=== PATIENT | male | born 1960 | race Hispanic/Latino ===

== ENCOUNTER 2018-10-30 05:44 | Observation (INO) | payer BC ==
[~2018-10-30 05:44] MED LIST: ANCEF/STERILE WATER 2 GM/20 ML IV NR
[2018-10-30] MEDS ORDERED: NACL BACTERIOSTATIC INFILTRATI ONE (06:30)
[2018-10-30] MEDS ORDERED: LACTATED RINGERS 1,000 ML ONE (06:30)
[2018-10-30] MEDS ORDERED: XYLOCAINE MPF 2% ONE (07:00)
[2018-10-30] MEDS ORDERED: QUELICIN ONE (07:00)
[2018-10-30] MEDS ORDERED: ROBINUL ONE (07:00)
[2018-10-30] MEDS ORDERED: ZOFRAN ONE (07:00)
[2018-10-30] MEDS ORDERED: PHENYLEPHRINE/NS Syringe 1,000 MCG/10 ML IV ONE (07:00)
[2018-10-30] MEDS ORDERED: BLOXIVERZ ONE (07:00)
[2018-10-30] MEDS ORDERED: DECADRON ONE (07:00)
[2018-10-30 07:10] LABS: Basophils % (Auto) 0.6 % (0.0-1.8); Eosinophils # (Auto) 0.2 K/mm3 (0.0-0.4); Eosinophils % (Auto) 3.3 % (0.0-4.3); Hematocrit 42.9 % (35.5-45.6); Hemoglobin 14.6 gm/dl (11.8-15.2); Lymphocytes # (Auto) 1.2 K/mm3 (1.2-5.4); Lymphocytes % (Auto) 23.8 % (13.4-35.0); Mean Corpuscular HGB Conc 34 % (32-34); Mean Corpuscular Hemoglobin 30 pg (28-32); Mean Corpuscular Volume 89 fl (84-94); Monocytes # (Auto) 0.6 K/mm3 (0.0-0.8); Monocytes % (Auto) 11.6 % (0.0-7.3); Platelet Count 148 K/mm3 (140-440); Red Blood Count 4.81 M/mm3 (3.65-5.03); Red Cell Distribution Width 13.3 % (13.2-15.2)
--- NOTE | 2018-10-30 07:24 | Anesthesia Day of Surgery ---
Anesthesia Day of Surgery - Day of Surgery Patient Examined: Yes Patient H&P Reviewed: Yes Patient is NPO: Yes
--- NOTE | 2018-10-30 07:28 | Anesthesia Consultation ---
Anesthesia Consult and Med Hx Date of service: 10/30/18 - Pre-Operative Health Status ASA Pre-Surgery Classification: ASA3 Proposed Anesthetic Plan: General - Pulmonary Hx Smoking: Yes (STOPPED 1997) COPD: Yes (DAILY INHALER) Hx Sleep Apnea: Yes (DX SLEEP APNEA , NO CPAP USE.) - Cardiovascular System Hx Hypertension: Yes (X 5 YRS) Hx Coronary Artery Disease: No (ETT few years ago negative per pt) - Central Nervous System Hx Back Pain: Yes (BACK PAIN TO RT LEG WITH PAIN AND NUMBNESS) - Other Systems Hx Cancer: No
[2018-10-30 07:29] LABS: Alanine Aminotransferase 35 units/L (7-56); Albumin 4.5 g/dL (3.9-5); BUN/Creatinine Ratio 27; Blood Urea Nitrogen 16 mg/dL (9-20); Calcium 9.3 mg/dL (8.4-10.2); Hemolysis Index 5
[2018-10-30] MEDS ORDERED: CELESTONE SOLUSPAN IM ONE (07:34)
[2018-10-30] MEDS ORDERED: MARCAINE 0.5% INFILTRATI ONE ×2 (07:35→19:21)
[2018-10-30] MEDS ORDERED: DIPRIVAN 10 MG/ML IV ONE ×2 (07:35→16:34)
[2018-10-30] MEDS ORDERED: XYLOCAINE 1%/ EPI 1:100,000 INFILTRATI ONE (07:35)
[2018-10-30] MEDS ORDERED: SUBLIMAZE ONE (07:35)
[2018-10-30] MEDS ORDERED: BACITRACIN ONE (07:35)
[2018-10-30] MEDS ORDERED: NACL P/F VIAL (10 ML) 10 ML ONE (07:35)
[2018-10-30] MEDS ORDERED: TYLENOL ONE (07:46)
[2018-10-30] MEDS: VERSED IV NR ×2 (07:50→15:35)
[2018-10-30] MEDS ORDERED: ANCEF ONE (07:51)
[2018-10-30] MEDS ORDERED: SUBLIMAZE IV PRN (08:00)
[2018-10-30] MEDS ORDERED: ZOFRAN IV PRN (08:00)
[2018-10-30] MEDS ORDERED: MORPHINE IV NR (08:00)
[2018-10-30] MEDS ORDERED: TYLENOL PO NR (08:00)
[2018-10-30] MEDS ORDERED: LACTATED RINGERS 1,000 ML IV SCH (08:00)
[2018-10-30] MEDS ORDERED: NEURONTIN PO NR (08:00)
[2018-10-30] MEDS ORDERED: METHYLENE BLUE ONE (08:45)
[2018-10-30] MEDS ORDERED: DILAUDID IV PRN ×2 (09:06→22:09)
[2018-10-30] MEDS: DILAUDID IV PRN ×3 (11:19→23:50)
[2018-10-30] MEDS ORDERED: VERSED IV ONE (15:23)
[2018-10-30] MEDS ORDERED: KETALAR ONE (16:34)
[2018-10-30] MEDS ORDERED: BACITRACIN IR ONE (19:21)
[2018-10-30] MEDS ORDERED: OMNIPAQUE 300 MG/50 ML (CATH LAB) IV ONE (19:21)
[2018-10-30] MEDS ORDERED: METHYLENE BLUE IV ONE (19:21)
[2018-10-30] MEDS ORDERED: ANCEF IV ONE (19:21)
[2018-10-30] MEDS ORDERED: NORCO 10/325 PO PRN (22:11)
[2018-10-30] MEDS ORDERED: TORADOL IV PRN (22:19)
--- NOTE | 2018-10-30 22:45 | Fluoroscopy Report ---
INTRAOPERATIVE FLUOROSCOPY: LUMBAR SPINE INDICATION: History of disc herniation at L4-L5. Intraoperative guidance for discectomy and lumbar myelogram. TECHNIQUE: Intraoperative spot images were obtained during the procedure. FINDINGS: The limited submitted images demonstrate access of the L4-L5 disc space from a posterior approach. Pl ease see the operative report for further details. Fluoroscopy Time: 2.7 minutes. Fluoroscopy Images: 4. Signer Name: Garfield Robbins MD Signed: 10/30/2018 10:41 PM Workstation Name: [id number]
--- NOTE | 2018-10-30 22:49 | Post Anesthesia Evaluation ---
- Post Anesthesia Evaluation Patient Participated: Yes Airway Patent: Yes Stable Respiratory Function: Yes Nausea/Vomiting: No Temp > 96.8F: Yes Pain Manageable: Yes Adequeate Hydration: Yes Anesthesia Complications: No Other Comments: A/Ox3, neuro grossly intact, pain adequately controlled.
[2018-10-31] MEDS: DILAUDID IV PRN (03:25)
[2018-10-31] MEDS ORDERED: GLUCOPHAGE PO SCH (08:00)
[2018-10-31 08:18] VITALS: BP 143/88
[2018-10-31] MEDS ORDERED: NON-FORMULARY (Metformin Hcl [Metformin] 1,000 MG) PO SCH (10:00)
[2018-10-31] MEDS ORDERED: NORVASC PO SCH (10:00)
[2018-10-31] MEDS ORDERED: PRAVACHOL PO SCH (22:00)
--- NOTE | 2018-11-03 16:02 | Short Stay Summary ---
Short Stay Documentation Date of service: 10/30/18 Narrative H&P: See Attached H & P - Allergies and Medications Current Medications: Allergies gabapentin Adverse Reaction (Verified 10/30/18 07:29) Nausea PT STATED SEVERE NAUSEA Home Medications Medication Instructions Recorded Confirmed Last Taken Type HYDROcodone/APAP 10-325 [Roberts 1 each PO Q6HR PRN 09/02/18 10/23/18 10/29/18 History 10/325] Metformin HCl [metFORMIN] 1,000 mg PO BID 09/02/18 10/23/18 10/29/18 History Pravastatin [Pravachol] 40 mg PO QHS 09/02/18 10/23/18 10/29/18 History Rabeprazole Sodium [Aciphex] 20 mg PO DAILY 09/02/18 10/23/18 10/29/18 History Tiotropium Br/Olodaterol HCl 4 gm IH DAILY 09/02/18 10/23/18 10/29/18 History [Stiolto Respimat Inhal [place]] amLODIPine [Norvasc] 10 mg PO DAILY 09/02/18 10/30/18 10/30/18 03:00 History Meloxicam [Mobic] 15 mg PO DAILY 10/23/18 10/23/18 10/29/18 History Triazolam [Halcion] 0.25 mg PO PRN PRN 10/23/18 10/23/18 10/29/18 History - Physical exam General appearance: no acute distress Integumentary: no rash HEENT: Atraumatic, PERRLA, EOMI Lungs: Clear to auscultation Breasts: deferred Heart: Regular rate, Normal S1, Normal S2, No murmurs Gastrointestinal: normal Male Genitourinary: deferred Rectal Exam: deferred Extremities: no ischemia, pulses intact Neurological: Normal gait, Strength at 5/5 X4 ext, Normal tone, Cranial nerves 3-12 NL, Other (Absent right patellar and achilles DTR. Decrease sensation right anterior thigh.) - Hospital course Hospital course: The patient was admitted for lumbar spine surgery on 10/30/2018. As a result of delay in neuromonitoring coverage, procedure was postponed from them 7:30 a.m. to 6:00 PM Minimally invasive discectomy was performed on the right at L4-5. The procedure was concluded proximally 9 PM. To maintain satisfactory postoperative pain control, the patient was admitted for 23 hour observation. He was discharged on 10/31/2018 in good condition. - Disposition Condition at discharge: Stable Short Stay Discharge Plan Additional Instructions: Please call md with any increase in pain not relieved by medication, fever greater than 100.4, any numbness or tingling to either lower extremity Do not bend more than 45 degrees Do not left anything heavier than 10-15 pounds Do not remove dressing from back for 3 days. Remove at that time. Call md if any problems with incision of incision opening, redness around, or drainage from incision. please call office to make appointment to be seen in 10 days Follow up with: MARY MANDEL MD [Primary Care Provider] - 10 Days
--- NOTE | 2018-11-03 16:23 | Operative Report ---
Operative Report Operative Report: DATE OF SERVICE: 10/30/2018. PREOPERATIVE DIAGNOSIS: 1. Chronic right lower extremity radiculopathy. 2. Chronic axial low back pain. 3. Degenerative disc disease of lumbar spine. 4. Lumbar disc herniation right L4-5 POSTOPERATIVE DIAGNOSIS: 1. Chronic lower extremity radiculopathy. 2. Chronic axial low back pain. 3. Degenerative disc disease of lumbar spine. 4. Lumbar disc herniation right L4-5. PROCEDURE PERFORMED: 1. Right L4-5 foraminotomy. 2. Transforaminal discectomy of Lumbar Spine -Right L4-5. 3. Intraoperative lumbar discography L4-5 SURGEON: SANDRA CHEATHAM M.D. ANESTHESIA: GETA, 1% lidocaine local/0.5% bupivicaine. NEUROMONITORING: EMG and SSEP neuromonitoring bilateral lower extremities was performed throughout the procedure. No abnormal activity was observed during the procedure. EBL: 15 mL DESCRIPTION OF PROCEDURE: Following informed consent, the patient was brought to the operative suite and placed on the table a prone position. General endotracheal anesthesia was delivered without complication. The back was sterilely prepped and draped in routine fashion. Patient received 2 g of Ancef intravenously for antimicrobial prophylaxis. A C-arm was brought into place with attention turned to the lumbar spine. Attention was turned toward the left L4-5 neural foramen. A 5-gauge 5 inch spinal needle was directed into the vertebral disc. Lumbar discography was performed with 7 ml Omnipaque 240 mixed with 2 ml methylene blue and 100 mg of cefazolin. The following findings were identified with intraoperative lumbar discography: 1). right foraminal disc herniation with outer annular extravasation. 2). Grade 3 disc degeneration with contrast extension into the outer annulus circumferentially.. Attention was next turned to the lumbar spine at L4-5 on the right. Following injection of 1% lidocaine with epinephrine, a 1 cm transverse incision was made approximately 13 cm lateral to the midline. Using serial dilators, a tract was created to the L4-5 neural foramen. Foraminotomy was then performed with resection of the anterior aspect of the superior articular process of L5. A tubular retractor was anchored. The bony structures and attached soft tissues were identified under direct visualization. This was followed by placement of a endoscope. Bipolar electrocautery was utilized for hemostasis. The soft tissue was dissected from the dorsal aspect of the superior and inferior lamina chronic appearing disc herniation with collagenous I's annular material was removed from the inferior aspect of the neural foramen. Using a high-speed articulating drill with a miley-tip ana, the inferior L4 endplate was partially removed expanding the inferior aspect of the neural foramen. The lateral epidural space was explored and no compression of the traversing L5 nerve root was identified. Neural foramen was inspected and explored superiorly. No displaced fragments were identified within the foramen. The annulotomy was cauterized and using pituitary forceps, additional disc material was removed within the posterior lateral aspect of the intervertebral disc on the right. Once decompression appeared to be satisfactory and hemostasis appeared adequate 12 mg of betamethasone mixed with 3 mL of 0.5% bupivacaine was injected into the intervertebral disc with visible extravasation of the injectate through the annulotomy into the right L4-5 neural foramen. The incision was closed with interrupted 3-0 Vicryl sutures and skin edges were approximated with 3-0 Prolene interrupted sutures. Sterile dressing was applied. The patient was turned onto the gurney, extubated and taken to the PACU in stable cardiopulmonary neurologic condition. CONDITION AT DISCHARGE: Good. FOLLOW-UP: In office in 10 days for wound check.
== END 2018-10-31 11:45 | disposition home or self-care (01) ==
LOC: OR 05:44 → 3B-SURG 21:58
PROVIDERS: ADMIT Radiology Diagnostic Radiology; ATTEND Radiology Diagnostic Radiology
DX: M54.10 Radiculopathy, site unspecified (principal); M54.5 Low back pain; G89.29 Other chronic pain; M51.36 Other intervertebral disc degeneration, lumbar region; K45.8 Other specified abdominal hernia without obstruction or gangrene
CPT/HCPCS: 36415; 62304; 63056; 72100; 80053; 82962; 85025; 86850; 86900; 86901; 93005; 93010; 96374; 96375; 96376; G0378; J0330; J0690; J0702; J1100; J1170; J1885; J2250; J2270; J2370; J2405; J2704; J2710; J3010; J7120; Q9966; Q9968; A9270-GY